=== PATIENT | male | born 1960 | race Caucasian/White ===

== ENCOUNTER 2024-09-26 19:06 | Emergency (ER) | payer BC, SELFPAY ==
[2024-09-26 19:06] VITALS: BMI 28.0
[2024-09-26 19:20] VITALS: BP 137/75
[2024-09-26 19:38] LABS: % Basophils 0.3 % (0-2); % Eosinophils 0.4 % (0-6); % Immature Granulocytes 0.2 % (0-0.5); % Lymphocytes 19.1 % (20.5-51.1); % Monocytes 3.9 % (1.7-9.3); % Neutrophils 76.1 % (42.2-75.2); Absolute Eosinophils 0.1 10^3/uL (0-0.7); Absolute Lymphocytes 2.4 10^3/uL (1.2-3.4); Absolute Monocytes 0.5 10^3/uL (0.1-0.6); Absolute Neutrophils 9.6 10^3/uL (1.4-6.5); Hematocrit 43.8 % (39.0-52.0); Hemoglobin 14.9 g/dL (13.0-18.0); Mean Corpuscular Volume 91.3 fL (80.0-94.0); Mean Platelet Volume 8.8 fL (7.4-10.4); Nucleated Red Blood Cells % 0 % (-); Platelet Count 313 10^3/uL (130-400); Red Cell Dist. Width 12.2 % (11.5-14.5); White Blood Cell Count 12.7 10^3/uL (4.8-10.8)
[2024-09-26 19:52] LABS: ALT (SGPT) 34 U/L (0-50); AST (SGOT) 27 U/L (17-59); Albumin 4.2 g/dl (3.5-5.0); Alkaline Phosphatase 56 U/L (38-126); Blood Urea Nitrogen 15 mg/dl (9-20); Calcium 9.7 mg/dl (8.4-10.2); Carbon Dioxide 23 mmol/L (22-30); Chloride 109 mmol/L (98-107); Glucose 103 mg/dl (70-99); Lipase 114 U/L (23-300); Potassium 3.9 mmol/L (3.5-5.1); Sodium 140 mmol/L (135-145); Total Bilirubin 0.7 mg/dl (0.2-1.3); Total Protein 7.2 g/dl (6.3-8.2); eGFR > 60.00
--- NOTE | 2024-09-26 22:14 | ED.GENMED ---
History of Present Illness
General
Chief Complaint: Abdominal Symptoms
Source: patient and spouse
Exam Limitations: none
Time Seen by Provider: 09/26/24 21:37
History of Present Illness
History of Present Illness:
This is a 64 year old male that comes in with c/o epigastric tenderness and vomiting. states that he has had 3 episodes of this in the past 2 months. States that 8 days ago he awoke with headache and then starts vomiting. States that the room
is spinning. States that he will vomit all day and he is very lethargic. Today he went to see the PCP and he was concerned that he has a hiatal hernia and was told to come to the ER. States that his pain is in the upper abd and he is nauseated with
vomiting. States that he has a headache that is across the forehead and that he is dizzy with the room spinning. Denies any fever, chills, chest pain, SOB, diarrhea, urinary burning.
Past History
Past History
ED Past Medical History: GERD and Other (Remy's Esophagus, ADHD, Diverticulitis with perforation, Hiatal hernia, Ulcers)
ED Past Surgical History: Tonsilectomy
Social History
Tobacco: Former smoker
Alcohol: Former
Personal:
Living: with family
Review of Systems
Review of Systems
All Other Systems: ROS reviewed and negative except as documented in HPI and ROS
Constitutional: Reports no symptoms; Denies fever or chills
EENT: Reports no symptoms
Respiratory: Reports no symptoms; Denies cough or trouble breathing
Cardiac: Reports no symptoms; Denies chest pain
ABD/GI: Reports abdominal pain (Epigastric tenderness), nausea and vomiting; Denies diarrhea
: Reports no symptoms; Denies dysuria, frequency or urgency
Musculoskeletal: Reports no symptoms
Skin: Reports no symptoms
Neurological: Reports dizzy and headache
Psychiatric: Reports no symptoms
Phy Exam
General Physical Exam
General Presentation: no apparent distress
General age: appears stated age
General Skin: warm and dry
General Habitus: normal
General Mental: alert
General Hydration: appears well hydrated
ENT Exam
ENT Exam: TM's normal, pharynx normal and neck supple
Eye Exam
Eye Exam: EOMI
Cardiovascular Exam
Cardiovascular Exam: regular rate/rhythm, no edema, no murmur and normal peripheral pulses
Pulmonary Exam
Pulmonary Exam: lungs clear, no respiratory distress, no rales, chest non tender, no crackles, no rhonchi, no wheezing and no cough
Gastrointestinal Exam
Gastrointestinal Exam: normal bowel sounds, soft, no organomegaly, no pulsatile mass, non distended and tender (Epigastric tenderness with palpation)
Musculoskeletal Exam
Musculoskeletal Exam: full ROM and no edema
Skin Exam
Skin Exam: normal color, warm/dry, no rash and no petechia
Psychiatric Exam
Psychiatric Exam: normal mood/affect
Course
Orders/Labs/Results
Orders:
Orders
09/26/24 19:22
Electrocardiogram (*1) Urgent
Reason for Study: Abdominal Pain
EKG- Treatment ONCE
IV Insert/Care/Rem.- Treatment PRN
09/26/24 19:32
Complete Blood Count/With Diff Urgent
Comprehensive Metabolic Panel Urgent
Lipase Urgent
09/26/24 22:10
CT Abd/pelvis W Iv Cont Urgent
Comment:
Reason For Exam: Upper abd discomfort. Vomiting
0.9% Sodium Chloride 1000 ml [Nss] 1,000 ml IV BOLUS
Pantoprazole [Protonix IV] 40 mg IV NOW STA
09/26/24 22:15
CT Head W/o Iv Contrast Urgent
Comment:
Reason For Exam: Headaches dizziness
Abnormal Lab Results
09/26/24
19:32
WBC 12.7 H 10^3/uL
(4.8-10.8)
Absolute Neuts (auto) 9.6 H 10^3/uL
(1.4-6.5)
Neutrophils % 76.1 H %
(42.2-75.2)
Lymphocytes % 19.1 L %
(20.5-51.1)
Chloride 109 H mmol/L
(98-107)
Creatinine 0.6 L mg/dL
(0.7-1.3)
Glucose 103 H mg/dl
(70-99)
09/26/24 19:32
09/26/24 19:32
Leukocytosis, Chloride slightly elevated. Glucose nonfasting. Lipase 114
Vital Signs
Initial and Last Documented VS:
Initial Vital Signs
Temp Pulse Resp BP Pulse Ox
98.5 F 78 19 137/75 97
09/26/24 19:20 09/26/24 19:20 09/26/24 19:20 09/26/24 19:20 09/26/24 19:20
Last Documented Vital Signs
Temp Pulse Resp BP Pulse Ox
98.5 F 78 19 118/70 97
09/26/24 19:20 09/26/24 19:20 09/26/24 19:20 09/27/24 00:00 09/27/24 00:15
MDM/Problems Addressed
Differential Diagnosis Includes:
Gastritis, Gastroporesis
MDM/Problems Addressed:
This is a 64 year old male that comes in with c/o headache, vomiting and upper abd pain.
Will get labs, CT scan, IV fluids and medicated with Protonix. Will give Carafate after CT.
Back into see patient. Explained that his CT of his head is normal along with the CT of the abd/pelvis. This may all be related to Gastritis. Will place patient on Protonix and Carafate. Patient to decrease his caffeine intake. Follow up with the
family doctor and the GI specialist for further evaluation. Patient to return with any concerns.
Chronic conditions affecting care:
Remy's esophagus, Ulcers
Acute Exacerbation and/or Progression of Chronic Illness:
Ulcers
*Radiology
Radiology exam reviewed: radiology read reviewed (CTA head-No acute intracranial abnormality noted. CT abd/pelvis-No significant acute abnormality identified in the abdomen or pelvis.)
*Pulse Oximetry
Patient hypoxic: no
*EKG
Interpreted by ED Provider?: NA
Rate: EKG- N/A
*Special Deputy Sheriff Interpretation
Rate: Special Deputy Sheriff- N/A
*Critical Care Note
Total Time (30-74mins, 75-104mins- exclusive of procedures): Not Applicable
ED Attending Note
-
Portions of this chart may have been created with voice recognition software.� Occasional wrong word or��sound alike� substitutions may have occurred due to the inherent limitations of voice recognition software.
Discharge Plan
Departure
Patient Disposition: Home (Routine Discharge)
Date of Disposition: 09/27/24
Time of Disposition: 00:26
Patient with high blood pressure during this ER visit?: No
Condition: Good
Covid-19: Not Applicable
Discharge Problem:
Gastritis, GERD (gastroesophageal reflux disease)
Instructions: Gastritis (DC), Acid reflux and GERD in adults
Prescriptions:
New
pantoprazole [Protonix] 40 mg tablet,delayed release (DR/EC)
40 mg PO DAILY Qty: 30 0RF
sucralfate [Carafate] 1 gram tablet
1 g PO ACHS Qty: 40 0RF
Rx Instructions:
Dissolve 2tsp water and drink 30min-1hour before meals and HS
No Action
atomoxetine 80 mg Capsule
80 mg PO DAILY
pantoprazole 40 mg Tablet,Delayed Release (Dr/Ec)
40 mg PO DAILY
triamcinolone acetonide 0.1 % Cream
1 applic topical BID Qty: 15 0RF
metronidazole 500 mg Tablet
500 mg PO Q8 Qty: 12 0RF
levofloxacin 500 mg Tablet
500 mg PO DAILY Qty: 4 0RF
Referrals:
Lori Stover MD [Family Provider] - Call in 1-3 days for appt
Leonie Cho MD [Active] - Call in 1-3 days for appt
Activity Restrictions/Additional Instructions:
As discussed, your blood work shows that your white blood cell count is slightly elevated. Your CT of the head is normal and your CT of the abd/pelvis is normal. This may all be due to Gastritis or Reflux. Please try and stop your caffeine intake.
Please try drinking 8-8oz glasses daily or water. You have had 2 prescriptions sent to your pharmacy. The first is Protonix that you will take daily. The seconds is Carafate that you will dissolve in 2 tsp of water and drink 30min to 1 hour before
each meal and at bedtime. Follow up with the family doctor and the GI specialist for further evaluation. IF YOU HAVE INCREASED PAIN OR YOU HAVE ANY OTHER CONCERNS PLEASE RETURN TO THE EMERGENCY ROOM .
Interventions
Interventions:
*Risk Screen - Suicide Last Done: 09/26/24 19:20
*General Assessment Last Done: 09/26/24 23:10
*Neglect/Abuse Screening Last Done: 09/26/24 19:20
*ED COVID-19 Vaccine History Last Done: 09/26/24 23:10
HT-Mivxvx-Vxlgyvbaqh Assessment Last Done: 09/26/24 23:10
Discharge Date and Time
Print Language: ESTONIAN
[2024-09-26 22:20] VITALS: BP 114/72
[2024-09-26] MEDS: NSS 1000 IV (22:35)
[2024-09-26] MEDS: PROTONIX IV 40 MG IV (22:35)
[2024-09-26 23:10] VITALS: BP 119/70
[2024-09-27] VITALS: BP 118/70
[2024-09-27] MEDS: CARAFATE SUSPENSION 1 GM PO (00:31)
== END 2024-09-27 00:49 | disposition home or self-care (01) ==
LOC: EMR 19:06
PROVIDERS: Emergency Medicine; EMERGENCY PHYSICIAN Emergency Medicine; FAMILY PHYSICIAN Family Medicine
DX: R10.13 Epigastric pain (principal); R11.2 Nausea with vomiting, unspecified; K21.9 Gastro-esophageal reflux disease without esophagitis; K22.70 Barrett's esophagus without dysplasia; F90.9 Attention-deficit hyperactivity disorder, unspecified type; K44.9 Diaphragmatic hernia without obstruction or gangrene; D72.829 Elevated white blood cell count, unspecified; Z87.19 Personal history of other diseases of the digestive system; Z87.891 Personal history of nicotine dependence
CPT/HCPCS: 99284; 70450; 74177; 80053; 83690; 85025; 93005; Q9967

== ENCOUNTER 2025-09-03 21:45 | Emergency (ER) | payer BC, SELFPAY ==
[2025-09-03 21:47] VITALS: BP 118/72
[2025-09-03 21:59] LABS: Hematocrit 41.7 % (39.0-52.0); Hemoglobin 14.0 g/dL (13.0-18.0); Mean Corp Hgb Conc. 33.6 g/dL (33.0-37.0); Mean Corpuscular Volume 92.1 fL (80.0-94.0); Nucleated Red Blood Cells % 0 % (-); Platelet Count 259 10^3/uL (130-400); Red Cell Dist. Width 11.9 % (11.5-14.5)
[2025-09-03 22:14] LABS: ALT (SGPT) 29 U/L (0-50); AST (SGOT) 23 U/L (17-59); Albumin 4.2 g/dl (3.5-5.0); Alkaline Phosphatase 49 U/L (38-126); Blood Urea Nitrogen 17 mg/dl (9-20); Calcium 9.6 mg/dl (8.4-10.2); Carbon Dioxide 25 mmol/L (22-30); Chloride 106 mmol/L (98-107); Glucose 96 mg/dl (70-99); Lipase 115 U/L (23-300); Potassium 4.0 mmol/L (3.5-5.1); Sodium 134 mmol/L (135-145); Total Protein 7.3 g/dl (6.3-8.2); eGFR > 60.00
[2025-09-03 23:55] VITALS: BMI 29.0
[2025-09-04 00:53] VITALS: BP 112/72
[2025-09-04 01:00] VITALS: BP 112/66
--- NOTE | 2025-09-04 01:03 | ED.GENMED ---
History of Present Illness
General
Chief Complaint: Abdominal Pain
Source: patient
Time Seen by Provider: 09/04/25 01:04
History of Present Illness
History of Present Illness:
Note:
CHIEF COMPLAINT(S)
Lower abdominal pain.
HISTORY OF PRESENT ILLNESS
The patient is a 65-year-old male presenting with lower abdominal pain. The patient reports that the pain began earlier today and has experienced a similar episode approximately two years ago, diagnosed as diverticulitis. He recalls being
hospitalized for about a week at that time but no surgical intervention was performed. Recently, the pain has subsided somewhat within the last half hour but was significant earlier and involved areas on both sides of the abdomen. There are no
associated symptoms such as fever, chills, nausea, vomiting, constipation, diarrhea, urination issues, chest pain, or shortness of breath. The patients last bowel movement was around 9:00 AM today, which was uneventful. During the car ride to the
facility, the pain intensified with movements like bending or getting in and out of the vehicle. The patient denies any history of abdominal surgeries.
PHYSICAL EXAM
General: Alert, no acute distress.
Skin: Warm, dry.
Head: Normocephalic, atraumatic.
Neck: Supple, trachea midline.
Eye Ears, Nose, Mouth, and Throat: Oral mucosa moist.
Cardiovascular: Normal peripheral perfusion, no edema.
Respiratory: Respirations are non-labored.
Gastrointestinal: Abdomen nondistended.
Back: Normal range of motion, normal alignment.
Musculoskeletal: Normal range of motion, normal strength.
Neurological: Alert and oriented to person, place, time, and situation, no focal neurological deficit observed.
Psychiatric: Cooperative, appropriate mood & affect.
PLAN
A computed tomography (CT) scan of the abdomen will be performed to evaluate for possible appendicitis, given the patients presentation and history.
DIFFERENTIAL DIAGNOSIS
The differential diagnosis includes, in no particular order and is not limited to:
1. Diverticulitis.
2. Appendicitis.
3. Irritable bowel syndrome.
4. Gastroenteritis.
5. Inflammatory bowel disease.
6. Urinary tract infection.
7. Peptic ulcer disease.
8. Gallbladder disease.
9. Renal colic.
10. Hernia.
Disposition:
SUMMARY OF ENCOUNTER
The patient is a 65-year-old male who presented to the emergency department with lower abdominal pain that began yesterday afternoon. The pain resolved prior to the examination. Given his history of a past diverticulitis episode, a CT scan of the
abdomen was performed to investigate potential appendicitis or other causes of abdominal pain.
DISPOSITION
Discharge.
ASSESSMENT
The patients abdominal pain has resolved, and the CT scan did not reveal any acute abdominal pathology, making it unnecessary to admit the patient for further inpatient management.
PLAN
The patient will be discharged with instructions for follow-up care. Monitoring for any recurrence of symptoms is advised, and the patient should return to the emergency department if symptoms reappear or worsen.
INDEPENDENT REVIEW OF LABS AND INTERPRETATION OF TESTS
My independent interpretation of the CT scan of the abdomen is negative for acute abnormalities.
PATIENT EDUCATION AND COUNSELING
The patient was counseled about the resolving nature of his symptoms and advised to seek medical attention if symptoms of abdominal pain return or if new symptoms develop.
FOLLOW-UP INSTRUCTIONS
The patient should follow up with his primary care physician for further evaluation and management if necessary.
MEDICATION RECONCILIATION
No new medications were prescribed or administered during this visit.
MEDICAL DECISION MAKING
-Complexity of Data Reviewed: Chronic conditions affecting care include the patients history of diverticulitis. The differential diagnosis considered were diverticulitis, appendicitis, irritable bowel syndrome, gastroenteritis, inflammatory bowel
disease, urinary tract infection, peptic ulcer disease, gallbladder disease, renal colic, and hernia.
-Data:
Category 1
My independent interpretation of the CT scan shows no acute abdominal pathology.
-Risk:
Consideration of Admission/Observation: Escalation of care including admission/observation was considered given the complexity and risk of the patients presenting complaint and exam findings. However, ultimately, I feel the patient is safe for
outpatient management with close follow-up. Reasoning: Work-up is reassuring, does not reveal any acute life/organ-threatening processes, patient�s symptoms well controlled upon reevaluation, reexamination is reassuring, vitals are stable, patient
agreeable with discharge, reliable for follow-up.
DIAGNOSIS
Abdominal pain, unspecified (ICD-10 Code: R10.9).
Past History
Past History
ED Past Medical History: GERD and Other (Remy's Esophagus, ADHD, Diverticulitis with perforation, Hiatal hernia, Ulcers)
ED Past Surgical History: Tonsilectomy
Social History
Tobacco: Former smoker
Alcohol: Former
Personal:
Living: with family
Phy Exam
Physical Exam
Physical Exam:
.
Course
Orders/Labs/Results
Orders:
Orders
09/03/25 21:52
Complete Blood Count/With Diff Urgent
Comprehensive Metabolic Panel Urgent
Lipase Urgent
09/04/25
CT Abd/Pel (IV only)-DH only Urgent
Reason For Exam: abd pain for 2 hrs
09/04/25 03:11
Urinalysis Reflex To Culture Urgent
Date Specimen was Collected: 09/04/25
Time Specimen was Collected: 03:11
Urine Microscopic Reflex Cult Urgent
Abnormal Lab Results
09/03/25 09/04/25
21:52 03:11
RBC 4.53 L 10^6/uL
(4.70-6.10)
Absolute Monos (auto) 0.8 H 10^3/uL
(0.1-0.6)
Neutrophils % 40.9 L %
(42.2-75.2)
Monocytes % 10.3 H %
(1.7-9.3)
Sodium 134 L mmol/L
(135-145)
Ur Occult Blood Reflex 1+ A
(Negative)
Urine RBC 3-6 A /HPF
(0-2)
Urine Albumin (Reflex) 1+ A
(Neg - Trace)
09/03/25 21:52
09/03/25 21:52
Vital Signs
Initial and Last Documented VS:
Initial Vital Signs
Temp Pulse Resp BP Pulse Ox
97.7 F 80 16 118/72 98
09/03/25 21:47 09/03/25 21:47 09/03/25 21:47 09/03/25 21:47 09/03/25 21:47
Last Documented Vital Signs
Temp Pulse Resp BP Pulse Ox
97.7 F 82 14 115/71 96
09/03/25 21:47 09/04/25 04:07 09/04/25 04:07 09/04/25 04:07 09/04/25 04:07
*Pulse Oximetry
SaO2: 98
Oxygen Mode of Delivery: Room air
Patient hypoxic: no
*Critical Care Note
Total Time (30-74mins, 75-104mins- exclusive of procedures): Not Applicable
Update Note
Update Note:
NAME: KEVIN ROSARIO
DATE OF EXAM: 09/04/2025
Patient No: [id number]
Physician:
Date of : 1960
Past Medical History (entered by Technologist):
Reason For Exam (entered by Technologist):
Other Notes (entered by Technologist):
Additional Information (per [facility] Radiologist):
CT abdomen and pelvis with contrast
IMPRESSION:
No acute findings in the abdomen and pelvis
Colonic diverticulosis without signs of diverticulitis
Normal appendix
Stomach appears within normal limits
Suspected cholelithiasis(faintly radiodense focus in the infundibulum and neck
No secondary findings to suggest cholecystitis
No bile duct dilation. No evidence for pancreatitis
No ureteral obstruction, hydroureteronephrosis or signs of bilateral pyelonephritis
Nonobstructing left renal calculi
Urinary bladder appears normal
No AAA
Mild bibasilar atelectasis
Nodular thickening of the gallbladder fundus which may signify adenomyomatosis
Small periumbilical fat-containing hernia
Degenerative changes in the spine, pelvis, and hips
Case finalized on 09/04/25 02:24 EDT
Scott Arnold M.D.
This report has been electronically signed and verified by the Radiologist whose name is printed above.
ED Attending Note
-
Portions of this chart may have been created with voice recognition software.� Occasional wrong word or��sound alike� substitutions may have occurred due to the inherent limitations of voice recognition software.
Discharge Plan
Departure
Patient Disposition: Home (Routine Discharge)
Date of Disposition: 09/04/25
Time of Disposition: 02:59
Patient with high blood pressure during this ER visit?: No
Condition: Good
Discharge Problem:
Abdominal pain
Instructions: Abdominal Pain
Prescriptions:
No Action
pantoprazole 40 mg Tablet,Delayed Release (Dr/Ec)
40 mg PO DAILY
Referrals:
Ayush Kennedy MD [Family Provider, Internal Medicine]
Activity Restrictions/Additional Instructions:
Thank You for choosing [facility].
It was a pleasure meeting you and taking part in your care. We hope for your continued healing and wellness.
Please read discharge instructions in their entirety. However, they are for general education and may not describe your exact diagnosis at discharge. Information on your ER visit and medical conditions were discussed with you along with appropriate
follow up information...
If indicated, please take your medications as instructed and indicated on discharge paperwork.
Please schedule a follow up appointment as directed. Call to schedule an appointment
Please return to the emergency department with ANY change in, persisting, or worsening of symptoms. If any of your symptoms do not improve, or persist, or become more severe within 6-12 hours, please return to the emergency department for further
care.
Please return to the emergency department if you develop a headache, neck pain/stiffness, fever greater than 100.4F, chest pain, shortness of breath, persistent nausea, vomiting, slurred speech, difficulty walking, numbness/tingling, weakness, signs
of infection or any other symptoms that are worrisome to you.
If you have any questions or concerns please do not hesitate to call the Hospital at .
Interventions
Interventions:
*Risk Screen - Suicide Last Done: 09/03/25 21:49
*General Assessment Last Done: 09/03/25 23:58
*Neglect/Abuse Screening Last Done: 09/03/25 21:49
*ED- Fall Risk Assessment Last Done: 09/03/25 23:58
*ED COVID-19 Vaccine History Last Done: 09/03/25 23:57
*ED Influenza Vaccine History Last Done: 09/03/25 23:57
*Nursing Disposition Last Done: 09/04/25 04:07
KH-Phurcc-Cspwwzlmps Assessment Last Done: 09/04/25 00:02
Discharge Date and Time
Discharge Date/Time: 09/04/25 04:08
Print Language: DANISH
[2025-09-04 02:00] VITALS: BP 114/73
--- NOTE | 2025-09-04 03:08 | DOWNTIME ---
There was a Room 77 Client Steward/Stewardess Wine Downtime on 09/04/2025 from 0100 to 09/04/2025 at 0255. Downtime documentation of patient's care, including medication administrations, has been reconciled in the electronic record per guidelines. Refer to the
patient's paper chart under the miscellaneous tab to see printed paper medication records and downtime forms.
[2025-09-04 03:26] LABS: Urine Character Clear (Clear)
[2025-09-04 03:52] VITALS: BP 115/71
[2025-09-04 03:53] LABS: Urine Squamous Cell 0-2 /LPF (Few); Urine White Cell 0-2 /HPF (0-5)
[2025-09-04 04:07] VITALS: BP 115/71
== END 2025-09-04 04:08 | disposition home or self-care (01) ==
LOC: EMR 21:45
PROVIDERS: Emergency Medicine; EMERGENCY PHYSICIAN Student in an Organized Health Care Education/Training Program; FAMILY PHYSICIAN Internal Medicine
DX: R10.30 Lower abdominal pain, unspecified (principal); K21.9 Gastro-esophageal reflux disease without esophagitis; K22.70 Barrett's esophagus without dysplasia; K44.9 Diaphragmatic hernia without obstruction or gangrene; F90.9 Attention-deficit hyperactivity disorder, unspecified type; Z87.891 Personal history of nicotine dependence
CPT/HCPCS: 99284; 74177; 80053; 81003; 81015; 83690; 85025; Q9967